=== PATIENT | female | born 1960 | race Caucasian/White ===

== ENCOUNTER 2016-10-06 16:01 | Observation (INO) | payer OTHER ==
[~2016-10-06] VITALS: Ht 160 cm; Wt 53.7 kg
[~2016-10-06 16:01] MED LIST: Ecotrin PO; Effient PO; LIPITOR40 MG PO; LOPRESSOR25 MG PO; NOHOMEMEDS
[2016-10-06 16:31] LABS: HEMATOCRIT 41.3 % (36.0-46.0); MCH 28.8 PG (29.0-34.0); MCHC 34.4 G/DL (30.0-36.0); MCV 83.8 FL (83-99); MEAN PLAT.VOLUME 12.3 uM^3 (9.5-12.4); PLATELET COUNT 215 K/uL (156-360); RBC DIS.WIDTH-CV 14.5 % (11.8-14.6); RBC DIS.WIDTH-SD 44.2 % (39-53); RED BLOOD COUNT 4.93 M/uL (3.80-5.20); WHITE BLOOD COUNT 8.8 K/uL (4.1-10.2)
[2016-10-06 16:41] LABS: CHLORIDE 112 mEq/L (99-109); POTASSIUM 3.6 mEq/L (3.7-5.4); SODIUM 148 mEq/L (136-147)
[2016-10-06 16:43] LABS: GLUCOSE 75 mg/dL (70-99)
[2016-10-06 16:44] LABS: ANION GAP 12 MEQ/L (2-14)
[2016-10-06 16:47] LABS: GFR ESTIMATE (CALCULATED) > 59 mL/min/; UREA NITROGEN (BUN) 4 mg/dL (9-23)
[2016-10-06 16:54] LABS: TROP-I INTERPRETATION NEGATIVE; TROPONIN-I < 0.01 ng/mL (0.0-0.30)
[2016-10-06] MEDS ORDERED: ALPRAZOLAM0.5 MG PO (17:21)
[2016-10-06] MEDS ORDERED: AMBIEN10 MG PO (17:21)
[2016-10-06] MEDS ORDERED: TRAMADOL HCL50 MG PO (17:21)
[2016-10-06 20:17] LABS: TOTAL BILIRUBIN 0.4 mg/dL (0.0-1.0)
[2016-10-06 20:18] LABS: ALKALINE PHOSPHATASE 114 IU/L (3-129)
[2016-10-06 20:20] LABS: DIRECT BILIRUBIN 0.2 mg/dL (0.0-0.3)
[2016-10-06 20:22] LABS: LIPASE 25 U/L (1.0-51.0)
[2016-10-06 20:40] VITALS: BP 126/81
[2016-10-07] VITALS: BP 121/61
[2016-10-07 01:38] LABS: TROP-I INTERPRETATION NEGATIVE; TROPONIN-I < 0.01 ng/mL (0.0-0.30)
[2016-10-07 04:00] VITALS: BP 125/66
[2016-10-07 06:14] LABS: TROP-I INTERPRETATION NEGATIVE; TROPONIN-I < 0.01 ng/mL (0.0-0.30)
[2016-10-07 06:33] LABS: ANION GAP 8 MEQ/L (2-14); CHLORIDE 103 MEQ/L (99-109); GFR ESTIMATE (CALCULATED) > 59 mL/min/; GLUCOSE 84 mg/dL (70-99); HDL CHOLESTEROL 33 MG/DL (Desirable>=50); LDL CHOLESTEROL 84 mg/dL (Desirable<100); NON-HDL CHOLESTEROL 102 mg/dL (Desirable<160); POTASSIUM 3.6 MEQ/L (3.7-5.4); SAMPLE HEMOLYSIS CHECK 0; SAMPLE ICTERIC CHECK 0; SAMPLE LIPEMIA CHECK 0; TOTAL CHOLESTEROL 135 mg/dL (Desirable<200); TRIGLYCERIDES 90 MG/DL (Normal: <150); UREA NITROGEN (BUN) 7 mg/dL (9-23)
[2016-10-07 06:36] LABS: SODIUM 137 MEQ/L (136-147)
[2016-10-07 06:43] LABS: HEMATOCRIT 35.2 % (36.0-46.0); MCH 28.4 PG (29.0-34.0); MCHC 33.5 G/DL (30.0-36.0); MCV 84.8 FL (83-99); MEAN PLAT.VOLUME 12.3 uM^3 (9.5-12.4); PLATELET COUNT 160 K/uL (156-360); RBC DIS.WIDTH-CV 14.6 % (11.8-14.6); RBC DIS.WIDTH-SD 44.8 % (39-53); RED BLOOD COUNT 4.15 M/uL (3.80-5.20); WHITE BLOOD COUNT 7.5 K/uL (4.1-10.2)
[2016-10-07 08:51] VITALS: BP 124/79
[2016-10-07 09:04] LABS: D-DIMER ELISA 0.44 mg/L FEU (< 0.57)
[2016-10-07] MEDS ORDERED: NITROSTAT0.4 MG SL (11:09)
[2016-10-07] MEDS ORDERED: NICOTINE PATCH1 EAC2 TD (11:09)
== END 2016-10-07 11:41 | disposition home or self-care (01) ==
LOC: EME 16:01 → 5WEST 19:38 → EDOF 19:38 → 5WEST 20:32
PROVIDERS: Emergency Medicine; Hospitalist; Internal Medicine
DX: R07.89 Other chest pain (principal); E87.6 Hypokalemia; I25.10 Atherosclerotic heart disease of native coronary artery without angina pectoris; J44.9 Chronic obstructive pulmonary disease, unspecified; J45.909 Unspecified asthma, uncomplicated; Z91.19 Patient's noncompliance with other medical treatment and regimen; I10 Essential (primary) hypertension; I25.2 Old myocardial infarction; E78.5 Hyperlipidemia, unspecified; Z95.5 Presence of coronary angioplasty implant and graft; F17.210 Nicotine dependence, cigarettes, uncomplicated; F41.9 Anxiety disorder, unspecified
CPT/HCPCS: 71020; 71275; 80048; 80061; 80076; 83690; 83880; 84484; 85027; 85379; 93005; 99281; 99285; G0378; J2060; J2270